=== PATIENT | female | born 1950 | race Hispanic/Latino ===

== ENCOUNTER 2018-07-05 14:44 | Emergency (ER) | payer MEDICAID ==
[2018-07-05] MEDS ORDERED: DiphenhydrAMINE HCL 50 MG/ML VIAL ONE (16:18)
[2018-07-05] MEDS ORDERED: METHYLPREDNISOLONE SOD SUCC 125MG/2ML VIAL ONE (16:18)
[2018-07-05] MEDS ORDERED: FAMOTIDINE/PF 20 MG/2 ML VIAL IV ONE (16:19)
[2018-07-05 16:28] LABS: BASOPHILS % (AUTO) 0.7 % (0.0-5.0); EOSINOPHILS % (AUTO) 0.8 % (0.0-8.0); HEMATOCRIT 33.8 % (36-48); MEAN CORPUSCULAR HGB CONC 32.2 g/dL (32.0-36.0); MEAN CORPUSCULAR VOLUME 77.7 fL (79-99); MONOCYTES % (AUTO) 1.4 % (3.0-13.0); NEUTROPHILS % (AUTO) 77.1 % (40.0-77.0); NUCLEATED RED BLOOD CELLS 0.1 % (0.0-0.19); PLATELET COUNT (AUTO) 441 K/uL (130-400); RED BLOOD CELL COUNT(AUTO) 4.35 MIL/uL (4.00-5.50); RED CELL DISTRIBUTION WIDTH 18.6 % (11.0-15.5); WHITE BLOOD COUNT (AUTO) 7.6 K/uL (4.8-10.8)
[2018-07-05 17:51] LABS: APPEARANCE,URINE SL CLOUDY (CLEAR); BILIRUBIN,URINE MODERATE (NEGATIVE); COLOR,URINE YELLOW (YELLOW); GLUCOSE, URINE (UA) NEGATIVE (NEGATIVE); KETONES,URINE 15 mg/dL (NEGATIVE); LEUKOCYTE ESTERASE ,URINE TRACE (NEGATIVE); NITRATE,URINE POSITIVE (NEGATIVE); OCCULT BLOOD,URINE NEGATIVE (NEGATIVE); PH,URINE 5.5 (5.0-8.0); PROTEIN,URINE TRACE (NEGATIVE)
[2018-07-05 17:57] LABS: BACTERIA,URINE Moderate /HPF (None Seen); RBC,URINE 0-1 /HPF (0-1)
[2018-07-05 17:58] LABS: SQUAMOUS EPITHELIAL CELL,UR Few /HPF (0-2)
[2018-07-05] MEDS ORDERED: CEFTRIAXONE SODIUM 1 GM ONE (19:13)
[2018-07-05] MEDS ORDERED: SODIUM CHLORIDE 0.9% 100 ML IV ONE (19:14)
== END 2018-07-05 20:04 | disposition home or self-care (01) ==
LOC: EDH 14:44
DX: J02.9 Acute pharyngitis, unspecified (principal); R60.0 Localized edema; K14.0 Glossitis; N30.00 Acute cystitis without hematuria; D64.9 Anemia, unspecified; M19.90 Unspecified osteoarthritis, unspecified site; E78.5 Hyperlipidemia, unspecified; I10 Essential (primary) hypertension; M81.0 Age-related osteoporosis without current pathological fracture; G20 Parkinson's disease; F32.9 Major depressive disorder, single episode, unspecified; Z88.1 Allergy status to other antibiotic agents
CPT/HCPCS: 36415; 70490; 81001; 85025; 93971; 96365; 96375; 99285; J0696; J1200; J2930; J3490